=== PATIENT | female | born 1980 | race Caucasian/White ===

== ENCOUNTER 2023-09-11 20:12 | Emergency (ER) | payer MEDICAID ==
[~2023-09-11] VITALS: Ht 157.5 cm; Wt 54.9 kg
[2023-09-11 22:19] VITALS: TEMP 98.5
[2023-09-11] MEDS ORDERED: IBUPROFEN 600 MG TABLET ONE (23:03)
[2023-09-11] MEDS: IBUPROFEN 600 MG TABLET PO ONE (23:04)
[2023-09-12] MEDS ORDERED: IBUP-1955 PO (00:40)
[2023-09-12] MEDS ORDERED: ACET-2605 PO (00:40)
[2023-09-12 00:51] VITALS: BP 121/78; O2SAT 99
== END 2023-09-12 00:51 | disposition home or self-care (01) ==
LOC: ER 20:16
DX: R07.89 Other chest pain (principal)
CPT/HCPCS: 71100-TC